=== PATIENT | female | born 1995 | race Caucasian/White ===

== ENCOUNTER 2020-06-17 14:07 | Emergency (ER) | payer MEDICAID, OTHER ==
[~2020-06-17] VITALS: Ht 165.1 cm; Wt 90.7 kg
[2020-06-17 14:09] VITALS: BP 121/76
[2020-06-17 15:58] LABS: Basophils % (auto) 0.5 % (0.0-2.0); Eosinophils # (auto) 0.2 10 ^3/uL (0-0.8); Mean Corpuscular Hgb Conc. 32.7 g/dL (32.0-36.0); Red Cell Distribution Width 15.1 % (11.8-14.3)
[2020-06-17 15:59] LABS: Basophils # (auto) 0 10 ^3/uL (0-0.2); Eosinophils % (auto) 2.2 % (0.0-7.0); Hematocrit 44.6 % (36.0-46.0); Hemoglobin 14.6 g/dL (12.2-16.2); Lymphocytes # (auto) 2.2 10 ^3/uL (0.4-5.4); Lymphocytes % (auto) 22.8 % (10.0-50.0); Mean Corpuscular Hemoglobin 24.7 pg (28.0-32.0); Mean Corpuscular Volume 75.6 fL (80.0-100.0); Monocytes # (auto) 0.5 10 ^3/uL (0-1.3); Monocytes % (auto) 5.4 % (0.0-12.0); Neutrophils # (auto) 6.8 10 ^3/uL (1.6-8.6); Neutrophils % (auto) 69.1 % (37.0-80.0); Platelet Count (auto) 273 10^3/uL (140-450); Red Blood Cells 5.89 10^6/uL (4.0-5.20); White Blood Cell 9.8 10^3/uL (4.4-10.8)
[2020-06-17 16:22] LABS: Albumin 4.2 g/dL (3.4-5.0); Anion Gap 5 (5-15); Blood Urea Nitrogen 15 mg/dL (7-18); Calcium 9.3 mg/dL (8.5-10.1); Carbon Dioxide 28 mmol/L (21-32); Chloride 105 mmol/L (98-107); Glucose 93 mg/dL (74-106); Potassium 3.9 mmol/L (3.5-5.1); Sodium 138 mmol/L (136-145)
[2020-06-17 16:26] LABS: Alanine Aminotransferase 41 U/L (13-56); Alkaline Phosphatase 68 U/L (45-117); Aspartate Aminotransferase 17 U/L (15-37); Bilirubin, Total 0.8 mg/dL (0.2-1.0); GFR African American 117 mL/min; GFR Non-African American 97 mL/min; Total Protein 8.1 g/dL (6.4-8.2)
== END 2020-06-17 16:46 | disposition home or self-care (01) ==
LOC: ER 14:07
DX: R07.89 Other chest pain (principal); F17.210 Nicotine dependence, cigarettes, uncomplicated; F12.10 Cannabis abuse, uncomplicated
CPT/HCPCS: 36415; 71046; 80053; 84484; 85025

== ENCOUNTER 2020-06-23 23:29 | Emergency (ER) | payer MEDICAID ==
[~2020-06-23] VITALS: Ht 165.1 cm; Wt 90.7 kg
[2020-06-24 01:35] LABS: Basophils # (auto) 0 10 ^3/uL (0-0.2); Basophils % (auto) 0.2 % (0.0-2.0); Eosinophils # (auto) 0.5 10 ^3/uL (0-0.8); Eosinophils % (auto) 4.6 % (0.0-7.0); Hematocrit 46.2 % (36.0-46.0); Lymphocytes # (auto) 2.4 10 ^3/uL (0.4-5.4); Lymphocytes % (auto) 24.2 % (10.0-50.0); Mean Corpuscular Hemoglobin 24.9 pg (28.0-32.0); Mean Corpuscular Hgb Conc. 32.5 g/dL (32.0-36.0); Mean Corpuscular Volume 76.7 fL (80.0-100.0); Monocytes # (auto) 0.5 10 ^3/uL (0-1.3); Monocytes % (auto) 5.5 % (0.0-12.0); Neutrophils # (auto) 6.5 10 ^3/uL (1.6-8.6); Neutrophils % (auto) 65.5 % (37.0-80.0); Nucleated Red Blood Cells % 0.2 %; Platelet Count (auto) 279 10^3/uL (140-450); Red Blood Cells 6.02 10^6/uL (4.0-5.20); Red Cell Distribution Width 15.1 % (11.8-14.3)
[2020-06-24 02:06] LABS: Alanine Aminotransferase 45 U/L (13-56); Albumin 4.1 g/dL (3.4-5.0); Anion Gap 5 (5-15); Aspartate Aminotransferase 17 U/L (15-37); BUN/Creatinine Ratio 17.9; Blood Urea Nitrogen 14 mg/dL (7-18); Calcium 9.2 mg/dL (8.5-10.1); Carbon Dioxide 27 mmol/L (21-32); Chloride 106 mmol/L (98-107); GFR African American 119 mL/min; GFR Non-African American 98 mL/min; Glucose 90 mg/dL (74-106); Potassium 4.2 mmol/L (3.5-5.1); Sodium 138 mmol/L (136-145)
[2020-06-24 02:11] LABS: Alkaline Phosphatase 81 U/L (45-117); Bilirubin, Total 0.7 mg/dL (0.2-1.0); Total Protein 7.9 g/dL (6.4-8.2)
[2020-06-24] MEDS ORDERED: ALBUTEROL SULF 2.5 MG/0.5ML(0.5%) NEB SOLN NEB ONE (03:45)
[2020-06-24] MEDS ORDERED: IPRATROPIUM BROM 0.5 MG/2.5ML INH SOL NEB ONE (03:45)
[2020-06-24 05:01] VITALS: BP 115/68
== END 2020-06-24 06:33 | disposition home or self-care (01) ==
LOC: ER 23:31
DX: J45.31 Mild persistent asthma with (acute) exacerbation (principal); R07.2 Precordial pain; R06.02 Shortness of breath; F41.9 Anxiety disorder, unspecified
CPT/HCPCS: 36415; 71045; 80053; 84484; 85025; 93005; 94640; 99285; J7644